=== PATIENT | male | born 2000 | race Two or more races ===

== ENCOUNTER 2024-09-23 21:50 | Emergency (ER) | payer OTHER ==
[~2024-09-23] VITALS: Ht 185.4 cm; Wt 65.9 kg
[2024-09-23 21:58] VITALS: BP 112/64; PULSE 95; O2SAT 98
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
[2024-09-24 01:28] VITALS: TEMP 97
[2024-09-24 01:34] VITALS: RESP 16
[2024-09-24] MEDS: ketorolac trometh 15mg/ml vial 15 MG/ML ML IM ONE (01:34)
== END 2024-09-24 01:38 | disposition home or self-care (01) ==
LOC: ER 21:51 → EDBD 21:51 → ER 09-24 01:38
DX: S39.012A Strain of muscle, fascia and tendon of lower back, initial encounter (principal); V89.2XXA Person injured in unspecified motor-vehicle accident, traffic, initial encounter; Y93.89 Activity, other specified; Y92.89 Other specified places as the place of occurrence of the external cause; Y99.8 Other external cause status
CPT/HCPCS: 96372; 99283; J1885